=== PATIENT | female | born 1970 | race Caucasian/White ===

== ENCOUNTER 2018-05-01 12:47 | Emergency (ER) | payer OTHER ==
--- NOTE | 2018-05-01 14:04 | ER Document Report ---
ED Medical Screen (RME) - General Chief Complaint: Vaginal Bleeding Stated Complaint: VAGINAL BLEEDING Time Seen by Provider: 05/01/18 14:01 Primary Care Provider: HALEIGH FRANKLIN MD [Primary Care Provider] - Follow up as needed Notes: 47-year-old female patient noted vaginal bleeding today. She urinated and noticed some blood when she wiped. It seemed to be thin and pink. She did wipe several times eventually became certain it was coming from the vagina. She has had a hysterectomy in the past. There are no other symptoms. Her blood pressure was high when she checked in. She states it was because she was worried, crying and change smoking though ever here. She states her blood pressures are normally quite low. She also reports that they have had trouble regulating her thyroid recently, but it has been hypothyroidism as the problem. I have greeted and performed a rapid initial assessment of this patient. A comprehensive ED assessment and evaluation of the patient, analysis of test results and completion of the medical decision making process will be conducted by additional ED providers. TRAVEL OUTSIDE OF THE [place] IN LAST 30 DAYS: No - Related Data Allergies/Adverse Reactions: miconazole nitrate [From Monistat 3] Allergy (Severe, Verified 05/01/18 12:51) severe swelling & rash Penicillins Allergy (Severe, Verified 05/01/18 12:51) Anaphylaxis codeine [Codeine] Allergy (Intermediate, Verified 05/01/18 12:51) hypotension syncope levothyroxine sodium [From Synthroid] Allergy (Verified 05/01/18 12:51) sulfamethoxazole [From Bactrim] Allergy (Verified 05/01/18 12:51) trimethoprim [From Bactrim] Allergy (Verified 05/01/18 12:51) adhesives Allergy (Intermediate, Uncoded 05/01/18 12:51) red/purple rash & swelling Past Medical History - Social History Chew tobacco use (# tins/day): No Frequency of alcohol use: None Drug Abuse: None Endocrine Medical History: Reports: Hx Diabetes Mellitus Type 2 - gestational Renal/ Medical History: Denies: Hx Peritoneal Dialysis Past Surgical History: Reports: Hx Cholecystectomy, Hx Gynecologic Surgery, Hx Hysterectomy Physical Exam - Vital signs Vitals: Temp Pulse Resp BP Pulse Ox 97.5 F 103 H 16 163/104 H 98 05/01/18 12:53 05/01/18 12:53 05/01/18 12:53 05/01/18 12:53 05/01/18 12:53 Course - Vital Signs Vital signs: Temp Pulse Resp BP Pulse Ox 97.5 F 103 H 16 163/104 H 98 05/01/18 12:53 05/01/18 12:53 05/01/18 12:53 05/01/18 12:53 05/01/18 12:53 Doctor's Discharge - Discharge Referrals: HALEIGH FRANKLIN MD [Primary Care Provider] - Follow up as needed
[2018-05-01 14:38] LABS: APPEARANCE,URINE CLEAR; BILIRUBIN,URINE NEGATIVE (NEGATIVE); COLOR,URINE COLORLESS; GLUCOSE, URINE >=500 mg/dL (NEGATIVE); KETONES,URINE NEGATIVE (NEGATIVE); LEUKOCYTE ESTERASE,URINE TRACE (NEGATIVE); NITRITE,URINE NEGATIVE (NEGATIVE); PROTEIN,URINE NEGATIVE (NEGATIVE); URINE SPECIFIC GRAVITY 1.003; UROBILINOGEN,URINE NEGATIVE mg/dL (<2.0)
--- NOTE | 2018-05-01 14:49 | ER Document Report ---
ED GI/ - General Chief Complaint: Vaginal Bleeding Stated Complaint: VAGINAL BLEEDING Time Seen by Provider: 05/01/18 14:01 Primary Care Provider: HALEIGH FRANKLIN MD [COMMUNITY BASED STAFF] - Follow up as needed Mode of Arrival: Ambulatory Information source: Patient Notes: Patient is a 47-year-old female who presents the emergency department with chief complaint of possible vaginal bleeding this morning. She states that she had a total hysterectomy in 2008, she still has a left ovary. Patient reports that when she urinated this morning she wiped she had a light pink tinged blood on the toilet paper. Patient denies any abnormal discharge, nausea, vomiting, diarrhea or abdominal pain. Patient states she has not had any vaginal bleeding in the past. Patient states the bleeding has now resolved. Again she describes the bleeding as a light pink tinged, not bright red blood. TRAVEL OUTSIDE OF THE [place] IN LAST 30 DAYS: No - Related Data Allergies/Adverse Reactions: miconazole nitrate [From Monistat 3] Allergy (Severe, Verified 05/01/18 12:51) severe swelling & rash Penicillins Allergy (Severe, Verified 05/01/18 12:51) Anaphylaxis codeine [Codeine] Allergy (Intermediate, Verified 05/01/18 12:51) hypotension syncope levothyroxine sodium [From Synthroid] Allergy (Verified 05/01/18 12:51) sulfamethoxazole [From Bactrim] Allergy (Verified 05/01/18 12:51) trimethoprim [From Bactrim] Allergy (Verified 05/01/18 12:51) adhesives Allergy (Intermediate, Uncoded 05/01/18 12:51) red/purple rash & swelling Past Medical History - General Information source: Patient - Social History Smoking Status: Current Every Day Smoker Chew tobacco use (# tins/day): No Frequency of alcohol use: None Drug Abuse: None Family History: Reviewed & Not Pertinent Patient has suicidal ideation: No Patient has homicidal ideation: No Endocrine Medical History: Reports: Hx Diabetes Mellitus Type 2 - gestational, Hx Hypothyroidism Renal/ Medical History: Denies: Hx Peritoneal Dialysis Past Surgical History: Reports: Hx Cholecystectomy, Hx Gynecologic Surgery, Hx Hysterectomy - Immunizations Immunizations up to date: Yes Review of Systems - Review of Systems Constitutional: No symptoms reported EENT: No symptoms reported Cardiovascular: No symptoms reported Respiratory: No symptoms reported Gastrointestinal: No symptoms reported Genitourinary: No symptoms reported Female Genitourinary: Vaginal bleeding Musculoskeletal: No symptoms reported Skin: No symptoms reported Hematologic/Lymphatic: No symptoms reported Neurological/Psychological: No symptoms reported Physical Exam - Vital signs Vitals: Temp Pulse Resp BP Pulse Ox 97.5 F 103 H 16 163/104 H 98 05/01/18 12:53 05/01/18 12:53 05/01/18 12:53 05/01/18 12:53 05/01/18 12:53 - Notes Notes: PHYSICAL EXAMINATION: GENERAL: Well-appearing, well-nourished and in no acute distress. HEAD: Atraumatic, normocephalic. EYES: Pupils equal round and reactive to light, extraocular movements intact, conjunctiva are normal. ENT: Nares patent, oropharynx clear without exudates. Moist mucous membranes. NECK: Normal range of motion, supple without lymphadenopathy LUNGS: Breath sounds clear to auscultation bilaterally and equal. No wheezes rales or rhonchi. HEART: Regular rate and rhythm without murmurs ABDOMEN: Soft, nontender, nondistended abdomen. No guarding, no rebound. No masses appreciated. Female : No CVA tenderness. Vaginal speculum exam with small amount of white discharge. No obvious blood noted in the vaginal vault. Musculoskeletal: Normal range of motion, no pitting or edema. No cyanosis. NEUROLOGICAL: Cranial nerves grossly intact. Normal speech, normal gait. Normal sensory, motor exams PSYCH: Normal mood, normal affect. SKIN: Warm, Dry, normal turgor, no rashes or lesions noted. Course - Re-evaluation Re-evalutation: Patient was initially seen by provider in [facility] who initiated her workup. Urinalysis shows greater than 500 glucose in the urine, small leukoesterase as well as moderate blood in the urine. Culture will be ordered. Patient does report that she has a history of borderline diabetes, fingerstick was obtained and glucose is 103. Patient is very concerned about this apparent vaginal bleeding, pelvic exam was performed, no bleeding was noted in the vagina. Swabs were obtained and sent to lab. Patient will be sent for a transvaginal ultrasound she is now concerned that she may have an ovarian cyst. 3+ bacteria and 3+ epithelials on the wet mount. Transvaginal ultrasound is unremarkable. All findings were discussed with the patient. Will start patient on Flagyl for the bacterial vaginosis. Patient reports that she is about to finish a course of Keflex that she was placed on for a lymph node infection. Will not start patient on antibiotics for UTI as the urine only appears mildly infected, will wait on culture. Patient is in agreement with plan of care. Patient agrees to follow-up with PCP. - Vital Signs Vital signs: Temp Pulse Resp BP Pulse Ox 97.5 F 103 H 16 163/104 H 98 05/01/18 12:53 05/01/18 12:53 05/01/18 12:53 05/01/18 12:53 05/01/18 12:53 - Laboratory Laboratory results interpreted by me: 05/01/18 14:20 Urine Glucose (UA) >=500 H Urine Blood MODERATE H Ur Leukocyte Esterase TRACE H Discharge - Discharge Clinical Impression: Bacterial vaginosis Hematuria Qualifiers: Hematuria type: unspecified type Qualified Code(s): R31.9 - Hematuria, unspecified Condition: Stable Disposition: HOME, SELF-CARE Additional Instructions: Vaginosis, Bacterial Your exam shows you have bacterial vaginosis. This condition is due to an overgrowth of bacteria in the vagina. Symptoms may include vaginal itching or pain, a smelly discharge, and sometimes burning with urination. Normally this is not transmitted by sexual contact. Vaginosis can be treated with oral or topical antibiotics. Metronidazole (Flagyl) pills are usually effective. Topical vaginal creams include Cleocin and Metro-Gel. You should avoid sexual contact until your symptoms are all better. Call the doctor if you develop pelvic pain, fever, or problems with urination, or if you don't improve as expected. At this time there appears to be an overgrowth of bacteria in the vagina otherwise noticed bacterial vaginosis. There is also blood in your urine. There is a small amount of leukocyte esterase which is indicative of a bacterial infection of the urine. Considering it appears to be a very mild infection we will not start you on a new antibiotic for the possible urinary tract infection at this time but will send the urine for a culture. This will take 48-72 hours to come back, someone will call you if you need to be placed on a antibiotic. It could be possible that the Keflex that you were already taking has helped resolve the urinary tract infection. Please follow-up with your primary care provider as we discussed, keep your appointment that you scheduled for Friday. Discuss with her that you had an episode of vaginal bleeding today and that we did a pelvic ultrasound which was normal. Prescriptions: Metronidazole [Flagyl 500 mg Tablet] 500 mg PO BID #14 tablet Referrals: HALEIGH FRANKLIN MD [COMMUNITY BASED STAFF] - Follow up as needed
[2018-05-01 15:07] LABS: BACTERIA (WET MOUNT) 3+ BACTERIA SEEN; EPITHELIALS (WET MOUNT) 3+ EPITHELIALS SEEN; T.VAGINALIS (WET MOUNT) NO TRICHOMONAS SEEN; WBCS (WET MOUNT) RARE WBCS SEEN; YEAST (WET MOUNT) NO YEAST SEEN
--- NOTE | 2018-05-01 15:22 | RADIOLOGY REPORT (SQ) ---
EXAM DESCRIPTION: U/S NON OB PEL TV W/DOPPLER COMPLETED DATE/TIME: 05/01/2018 3:13 pm REASON FOR STUDY: vaginal bleeding, hysterectomy in 2008 COMPARISON: None. TECHNIQUE: Dynamic and static grayscale images acquired of the pelvis via transvaginal approach and recorded on PACS. Additional selected color Doppler and spectral images recorded. LIMITATIONS: None. FINDINGS: UTERUS: Previous hysterectomy. ENDOMETRIAL STRIPE: Prior hysterectomy. CERVIX: Prior hysterectomy. RIGHT OVARY AND DOPPLER: Prior hysterectomy. LEFT OVARY AND DOPPLER: Prior hysterectomy. FREE FLUID: None noted. OTHER: No other significant finding. IMPRESSION: Patient has had hysterectomy. No fluid collections or pelvic masses. TECHNICAL DOCUMENTATION: JOB ID: [id number] [employer]- All Rights Reserved Rev-06/27 Reading location - IP/workstation name: [email or web address]
[2018-05-01 16:14] VITALS: BP 146/77
[2018-05-01 16:28] LABS: CHLAM PCR NOT DETECTED (NOT DETECT); GON PCR NOT DETECTED (NOT DETECT)
== END 2018-05-01 16:14 | disposition home or self-care (01) ==
LOC: ER 12:47
DX: N76.0 Acute vaginitis (principal); B96.89 Other specified bacterial agents as the cause of diseases classified elsewhere; R31.9 Hematuria, unspecified; L04.9 Acute lymphadenitis, unspecified; F17.200 Nicotine dependence, unspecified, uncomplicated; Z90.710 Acquired absence of both cervix and uterus; Z88.3 Allergy status to other anti-infective agents; Z88.8 Allergy status to other drugs, medicaments and biological substances; Z88.5 Allergy status to narcotic agent; Z88.1 Allergy status to other antibiotic agents; Z91.048 Other nonmedicinal substance allergy status; Z87.892 Personal history of anaphylaxis; Z88.0 Allergy status to penicillin
CPT/HCPCS: 76830; 81001; 82962; 87210; 87491; 87591; 93976; 99284

== ENCOUNTER → 2019-03-01 | Outpatient (CLI) | payer OTHER ==
--- NOTE | 2019-03-01 17:31 | RADIOLOGY REPORT (SQ) ---
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 TECHNIQUE: Noncontrast scanning from skull base through lung apices with review of bone, soft tissue and lung windows. Reconstructed coronal and sagittal MPR images reviewed. All images stored on PAC S. All CT scanners at this facility use dose modulation, iterative reconstruction, and/or weight based d osing when appropriate to reduce radiation dose to as low as reasonably achievable (ALARA). [facility]: Dose Right [facility]: CareDose [facility]: Dose Right [facility]: Teradose 4D [facility]: InNetwork RADIATION DOSE: mGy. LIMITATIONS: None. FINDINGS: SKULL BASE: Intact. MAJOR SALIVARY GLANDS: There is a 1.3 x 0.9 cm left submandibular sialolith. The submandibular gland s are symmetric with normal appearance. No evidence of ductal dilation or surrounding inflammatory c hange. Bilateral parotid glands have normal appearance. No surrounding inflammatory change. LYMPHADENOPATHY: No adenopathy. MUCOSAL MASSES OR ASYMMETRY: No mucosal masses or asymmetry. LARYNX/CORDS: No abnormal findings. LUNG APICES: Clear. BONES: Intact. THYROID: Normal size. No masses. PARANASAL SINUSES: Clear. OTHER: No other significant finding. IMPRESSION: 1. 1.3 x 0.9 cm left submandibular sialolith. No evidence of acute inflammatory change. TECHNICAL DOCUMENTATION: JOB ID: [id number] Quality ID # [id number]: Final reports with documentation of one or more dose reduction techniques (e.g., Au tomated exposure control, adjustment of the mA and/or kV according to patient size, use of iterative reconstruction technique) 2010 [employer]- All Rights Reserved Reading location - IP/workstation name: [email or web address]
== END ==
LOC: RAD 13:47
PROVIDERS: ATTEND Otolaryngology
DX: K11.23 Chronic sialoadenitis (principal); K11.8 Other diseases of salivary glands
CPT/HCPCS: 70490